=== PATIENT | female | born 2000 | race Caucasian/White ===

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

== ENCOUNTER → 2020-10-03 | Outpatient (CLI) | payer MEDICAID ==
--- NOTE | 2020-10-04 07:43 | ECHOF ---
Referral Reason:Z82.49 family hx heart disease MEASUREMENTS -------- HEIGHT: 170.2 cm WEIGHT: 61.2 kg BP: RVIDd: 2.8 cm (< 3.3) IVSd: 0.8 cm (0.6 - 1.1) LVIDd: 4.3 cm (3.9 - 5.3) LVPWd: 0.7 cm (0.6 - 1.1) IVSs: 1.2 cm LVIDs: 2.1 cm LVPWs: 1.2 cm LAESV Index (A-L): 13.54 ml/m Ao Diam: 2.7 cm (2.0 - 3.7) AV Cusp: 2.0 cm (1.5 - 2.6) MV EXCURSION: 17.081 mm (> 18.000) MV EF SLOPE: 114 mm/s (70 - 150) EPSS: 0.3 cm MV E Mo: 0.84 m/s MV DecT: 226 ms MV A Mo: 0.51 m/s MV E/A Ratio: 1.64 RAP: 5.00 mmHg RVSP: 24.22 mmHg FINDINGS -------- Sinus rhythm. This was a technically adequate study. The left ventricular size is normal. Left ventricular wall thickness is normal. There is normal g lobal left ventricular contractility. Overall left ventricular systolic function is normal with, an EF between 55 - 60 %. The diastolic filling pattern is normal for the age of the patient 5.70. The right ventricle is normal in size. Normal LA size by volume 22+/-6 ml/m2. The right atrial size is normal. Interatrial and interventricular septum intact. The aortic valve is trileaflet and appears structurally normal. There is no evidence of aortic regu rgitation. There is no evidence of aortic stenosis. There is trace mitral regurgitation. Trace tricuspid regurgitation present. There is no evidence of pulmonary hypertension. The right ventricular systolic pressure, as measured by Doppler, is 24.22mmHg. Trace/mild (physiologic) pulmonic regurgitation. The aortic root size is normal. IVC Not well visulized. There is no pericardial effusion. CONCLUSIONS -------- 1. This was a technically adequate study. 2. The left ventricular size is normal. 3. Left ventricular wall thickness is normal. 4. There is normal global left ventricular contractility. 5. Overall left ventricular systolic function is normal with, an EF between 55 - 60 %. 6. The diastolic filling pattern is normal for the age of the patient 5.70 7. There is trace mitral regurgitation. 8. Trace tricuspid regurgitation present. 9. Trace/mild (physiologic) pulmonic regurgitation. [employer]: Tayler Almeida RDCS
== END | disposition home or self-care (01) ==
LOC: RADECHMAIN 12:55
PROVIDERS: ATTEND Pediatrics
DX: Z09 Encounter for follow-up examination after completed treatment for conditions other than malignant neoplasm (principal); Z82.49 Family history of ischemic heart disease and other diseases of the circulatory system; I08.1 Rheumatic disorders of both mitral and tricuspid valves; I09.89 Other specified rheumatic heart diseases
CPT/HCPCS: 93306

== ENCOUNTER → 2023-05-19 | Outpatient (CLI) | payer MEDICAID ==
--- NOTE | 2023-05-19 13:26 | US ---
EXAMINATION TYPE: Transabdominal DATE OF EXAM: 05/19/2023 12:16 PM COMPARISON: NONE CLINICAL INDICATION: Female, 23 years old with history of Z36.89 ENCOUNTER FOR OTHER SPECIFIED ANTENA KELLE SCR; Confirm dates. . EXAM PERFORMED: Transabdominal (TA) EXAM MEASUREMENTS: GESTATIONAL AGE / DATING Physician Established: Not yet established. Dates by LMP: (8 weeks/0 days) EDC: 12/29/2023 Dates by First Scan: This is first scan Dates by Current Scan for: (8 weeks/4 days) EDC: 12/25/2023 MATERNAL ANATOMY Uterus: 11.3 x 7.6 x 6.5 cm. Right Ovary: 3.3 x 1.7 x 1.8 cm. Left Ovary: 4.3 x 2.6 x 1.9 cm. Post CDS / Adnexa: Appear wnl Presence of free fluid: None seen Presence of corpus luteal cyst: Not seen Presence of subchorionic bleed: Not seen GESTATION / SURVEY CRL: 1.95 (8 weeks/4 days) Yolk Sac (normal less than 6mm): 4 mm Heart Rate: 167 bpm Rhythm: Normal IUP: Viable IUP Date of LMP: 03/24/2023 Beta HcG (if available): Not available IMPRESSION: Single live intrauterine gestation with ultrasound age 8 weeks 4 days.
== END | disposition home or self-care (01) ==
LOC: RADUSWWP 12:14
PROVIDERS: ATTEND Obstetrics & Gynecology
DX: Z36.89 Encounter for other specified antenatal screening (principal); Z3A.08 8 weeks gestation of pregnancy
CPT/HCPCS: 76801

== ENCOUNTER → 2023-05-19 | Outpatient (CLI) | payer MEDICAID ==
[2023-05-19 15:39] LABS: HCT 40.1 % (37.2-46.3); HGB 13.4 d/dL (12.0-15.0); MCHC 33.4 d/dL (32.0-37.0); MCV 92.8 FL (80.0-97.0); Mean Platelet Volume 11.3 FL (9.5-12.2); NRBC Per 100 WBC 0 X 10*3/uL (0.00-0.01); Platelet Count 319 X 10*3/uL (140-440); RBC 4.32 X 10*6/uL (4.10-5.20); RDW 11.5 % (11.5-14.5); WBC 10.27 X 10*3/uL (4.50-10.00)
[2023-05-19 15:41] LABS: Glucose 117 mg/dL (70-110)
[2023-05-19 15:50] LABS: Hepatitis B Surface Antigen Nonreactive; Hepatitis C IgG Antibody Nonreactive
[2023-05-19 17:41] LABS: HIV 2 AB Non-Reactive (Non-Reactive); HIV AB P24 Non-Reactive (Non-Reactive); HIV P24 AG Non-Reactive (Non-Reactive)
[2023-05-20 04:58] LABS: Toxoplasma Antibody (IgG) <3.0 IU/mL (<7.2); Toxoplasma Antibody (IgM) <3.0 AU/mL (<8.0)
== END | disposition home or self-care (01) ==
LOC: LABWHC1 11:54
PROVIDERS: ATTEND Obstetrics & Gynecology
DX: Z34.01 Encounter for supervision of normal first pregnancy, first trimester (principal); Z3A.00 Weeks of gestation of pregnancy not specified
CPT/HCPCS: 36415; 82565; 82947; 85027; 86762; 86777; 86778; 86780; 86803; 87340; 87390

== ENCOUNTER → 2023-10-02 | Outpatient (CLI) | payer MEDICAID ==
--- NOTE | 2023-10-02 10:54 | US ---
EXAMINATION TYPE: US OB >= 14 wk fetus DATE OF EXAM: 10/02/2023 COMPARISON: US 2022 CLINICAL INDICATION: Female, 23 years old with history of O44.20 PARTIAL PLACENTA PREVIA NOS OR WITHO UT HEMO; Recheck placenta TECHNIQUE: Transabdominal (TA) GESTATIONAL AGE / DATING Physician Established: (28 weeks/0 days) EDC: 12/25/2023 Dates by LMP: (27 weeks/3 days) EDC: 12/29/2023 Dates by First Scan: (28 weeks/0 days) EDC: 12/25/2023 Dates by Current Scan: (28 weeks/5 days) EDC: 12/20/2023 SURVEY IUP: Single PLACENTA: Anterior PREVIA: Low Lying - tip of placenta 1.5cm from internal cervical os MONIK: 13.7 cm Normal CERVICAL LENGTH (transabdominal: norm > 3.0cm): 3.9 cm BIOMETRY PRESENTATION: Vertex BPD: 6.9 cm 28 weeks / 0 days HC: 25.9 cm 28 weeks / 1 days AC: 25.1 cm 29 weeks / 3 days FL: 5.5 cm 28 weeks / 6 days ESTIMATED WEIGHT IN GRAMS: 1310 grams ESTIMATED WEIGHT IN LBS/OZ: 2 lbs. 14 oz. WEIGHT PERCENTAGE BASED ON ESTABLISHED DATES: 74% HC/AC: 1.03 Abnormal FL/AC: 22% Normal HEART RATE: 150 bpm RHYTHM: Normal IMPRESSION: Single viable intrauterine .
== END | disposition home or self-care (01) ==
LOC: RADUSWWP 09:57
PROVIDERS: ATTEND Obstetrics & Gynecology
DX: O44.22 Partial placenta previa NOS or without hemorrhage, second trimester (principal); Z3A.29 29 weeks gestation of pregnancy
CPT/HCPCS: 76805

== ENCOUNTER 2023-12-24 23:55 | Inpatient (IN) | payer MEDICAID, OTHER ==
[2023-12-25] MEDS ORDERED: TRANEXAMIC 1,000 MG/100ML-NACL 1,000 MG in EMPTY BAG 1 BAG IV PRN (00:32)
[2023-12-25] MEDS ORDERED: TERBUTALINE 1 MG/ML VIAL SQ PRN (00:32)
[2023-12-25] MEDS ORDERED: CARBOPROST TROMETHAMINE 250 MCG/ML 1 ML AMP IM PRN (00:32)
[2023-12-25] MEDS ORDERED: OXYTOCIN 10 UNIT/ML 1 ML VIAL IM PRN (00:32)
[2023-12-25] MEDS ORDERED: miSOPROStoL 200 MCG TAB PO PRN (00:32)
[2023-12-25] MEDS ORDERED: METHYLERGONOVINE 0.2 MG/ML 1 ML AMP IM PRN (00:32)
[2023-12-25] MEDS: LACTATED RINGERS 1,000 ML IV SCH (01:03)
--- NOTE | 2023-12-25 01:12 | P.HPOB ---
History of Present Illness H&P Date: 12/25/23 Chief Complaint: Leaking of fluid, contractions This patient is a pleasant 23-year-old 1 para 0 female estimated date of confinement 12/25/2003 estimated gestational age 40-0/7 weeks who presents to labor and delivery with complaints of leaking of fluid earlier this evening and painful contractions. Patient's cervix in the office is 1 cm dilated is now 3 cm dilated. Patient's care is per Dr. Joiner appears to be complicated early on by a marginal previa however this resolved over serial ultrasounds. has otherwise been uncomplicated. Review of Systems Genitourinary: Reports Menstruation: Reports amenorrhea Past Medical History Past Medical History: No Reported History History of Any Multi-Drug Resistant Organisms: None Reported Past Surgical History: No Surgical Hx Reported Past Anesthesia/Blood Transfusion Reactions: No Reported Reaction Past Psychological History: No Psychological Hx Reported Smoking Status: Never smoker Past Alcohol Use History: None Reported Past Drug Use History: None Reported Medications and Allergies Home Medications Medication Instructions Recorded Confirmed Type Doxylamine Succinate [Unisom] 25 mg PO DAILY 12/25/23 12/25/23 History Pyridoxine [Vitamin B-6] 50 mg PO DAILY 12/25/23 12/25/23 History Allergies Allergy/AdvReac Type Severity Reaction Status Date / Time No Known Allergies Allergy Verified 12/25/23 00:02 Exam Vital Signs Temp Pulse Resp BP Pulse Ox 12/25/23 00:19 97.2 F L 82 16 134/73 97 Intake and Output 12/24/23 12/24/23 12/25/23 14:59 22:59 06:59 Other: Weight 83.007 kg - OBG Physical Exam Abdomen: bowel sounds normal, no diffuse tenderness, no bruit present, no guarding noted, no hepatomegaly, no splenomegaly, no mass Vulva: both: normal Vagina: normal moisture, no discharge Cervix: no lesion (Patient's cervix is 3/70/-2 station), no discharge Uterus: enlarged Results blood work shows she is Rubella immune, RPR nonreactive, hepatitis B and C negative, Glucola was normal, group B strep was negative. Patient's blood type is unavailable to me at this time. Ultrasounds initially showed a marginal previa however follow-up subsequent shoulder low-lying placenta and most recently showed normal placental placement Assessment and Plan Assessment: This is a pleasant 23-year-old 1 para 0 female 40-0/7 weeks gestation with spontaneous rupture membranes in early labor. Plan at this time is anticipate vaginal delivery and pain control per patient's request. (1) 40 weeks gestation of Current Visit: Yes Status: Acute Code(s): Z3A.40 - 40 WEEKS GESTATION OF SNOMED Code(s): 50853740 (2) Spontaneous rupture of amniotic membranes Current Visit: Yes Status: Acute Code(s): ODG3294 - SNOMED Code(s): 527434224 (3) Normal labor Current Visit: Yes Status: Acute Code(s): O80 - ENCOUNTER FOR FULL-TERM UNCOMPLICATED DELIVERY; Z37.9 - OUTCOME OF DELIVERY, UNSPECIFIED SNOMED Code(s): 57368570
[2023-12-25 01:16] LABS: Basophils % (A) 0 %; Eosinophils # (A) 0.1 k/uL (0-0.7); Eosinophils % (A) 1 %; HCT 36.8 % (34.0-46.0); HGB 12.7 gm/dL (11.4-16.0); Lymphocytes # (A) 1.9 k/uL (1.0-4.8); Lymphocytes % (A) 23 %; MCH 32.6 pg (25.0-35.0); MCHC 34.5 g/dL (31.0-37.0); MCV 94.6 fL (80.0-100.0); Mean Platelet Volume 8.3; Monocytes # (A) 0.5 k/uL (0-1.0); Monocytes % (A) 6 %; Neutrophils # (A) 5.6 k/uL (1.3-7.7); Neutrophils % (A) 67 %; Platelet Count 232 k/uL (150-450); RDW 13.7 % (11.5-15.5); WBC 8.3 k/uL (3.8-10.6)
[2023-12-25] MEDS ORDERED: ROPIVACAINE 5 MG/ML 30 ML VIAL ONE (04:26)
[2023-12-25] MEDS ORDERED: SODIUM CHLORIDE 0.9% 250 ML BAG ONE (04:26)
[2023-12-25] MEDS ORDERED: fentaNYL (PF) 50 MCG/ML 5 ML AMP ONE (04:26)
[2023-12-25] MEDS: OXYTOCIN 30 UNITS/500 ML NS 30 UNIT in SALINE 1 500ML.BAG IV SCH ×2 (06:16→11:34)
[2023-12-25] MEDS: LIDOCAINE 0.5% (PF) 5 MG/ML (50 ML SDV) SQ PRN (11:35)
[2023-12-25] MEDS ORDERED: LANOLIN CREAM 1 GM TUBE TOPICAL PRN (11:44)
[2023-12-25] MEDS ORDERED: HYDROCORTISONE 2.5% RECTAL CREAM 30 GM TUBE RECTAL PRN (11:44)
[2023-12-25] MEDS ORDERED: diphenhydrAMINE 50 MG CAP PO PRN (11:44)
[2023-12-25] MEDS ORDERED: SIMETHICONE 80 MG CHEWABLE PO PRN (11:44)
[2023-12-25] MEDS ORDERED: ZOLPIDEM 5 MG TAB PO PRN (11:44)
[2023-12-25] MEDS ORDERED: diphenhydrAMINE 50 MG/ML 1 ML VIAL IVP PRN ×2 (11:44)
[2023-12-25] MEDS ORDERED: diphenhydrAMINE 25 MG CAP PO PRN (11:44)
[2023-12-25] MEDS: BENZOCAINE/MENTHOL SPRAY 1 GM/SPRAY AEROSOL TOPICAL PRN (11:45)
[2023-12-25] MEDS: ROPIVACAINE 225 MG, fentaNYL (PF). 450 MCG in SODIUM CHLORIDE 0.9% 171 ML EPIDURAL ONE (15:08)
[2023-12-25] MEDS: IBUPROFEN 600 MG TAB PO PRN (20:43)
[2023-12-25] MEDS: SENNOSIDES-DOCUSATE SODIUM 1 EACH TAB PO SCH (22:14)
[2023-12-26] MEDS: ACETAMINOPHEN TAB 325 MG TAB PO PRN (00:24)
[2023-12-26] MEDS: Rhogam IMMUNE GLOBULIN 1,500 UNIT/1 ML IM ONE (00:28)
[2023-12-26 06:46] LABS: Basophils % (A) 0 %; Eosinophils # (A) 0.1 k/uL (0-0.7); Eosinophils % (A) 1 %; HCT 28.7 % (34.0-46.0); Lymphocytes # (A) 1.8 k/uL (1.0-4.8); Lymphocytes % (A) 14 %; MCH 32.3 pg (25.0-35.0); MCHC 33.6 g/dL (31.0-37.0); Mean Platelet Volume 8.7; Monocytes # (A) 0.6 k/uL (0-1.0); Monocytes % (A) 4 %; Neutrophils # (A) 10.8 k/uL (1.3-7.7); Neutrophils % (A) 79 %; Platelet Count 189 k/uL (150-450); RBC 2.99 m/uL (3.80-5.40); RDW 13.9 % (11.5-15.5); WBC 13.6 k/uL (3.8-10.6)
[2023-12-26 07:14] LABS: HGB 9.6 gm/dL (11.4-16.0)
--- NOTE | 2023-12-26 08:33 | P.PROBDLV ---
Vaginal Delivery Note - . Vaginal Delivery Note: 23 year old presents at 40 weeks gestation with spontaneous rupture of membranes and in labor. She is andrea every few minutes. heart tones category 1. The patient was 4 cm dilated, 80% effaced, -2 station she stalled out at this and Pitocin augmentation was started. Patient was comfortable with an epidural. Her cervix was completely dilated at 9:55 AM. She pushed, delivered a viable female over intact perineum under epidural anesthesia 11:31 AM. Head delivered OA, anterior shoulder delivered gentle downward guidance followed by posterior shoulder and rest of body. Nose and mouth bulb suctioned, cord clamped and cut, placed on mother's abdomen. Apgars 9, 10, weight 9 pounds. Placenta delivered spontaneously, intact with three-vessel cord at 11:34 AM. Vagina, cervix, and perineum were inspected. Second-degree midline laceration was repaired with 3-0 Vicryl. Estimated blood loss 250 mL. Mother and baby in stable condition.
--- NOTE | 2023-12-26 08:34 | P.DS ---
Providers Date of admission: 12/25/23 00:13 Expected date of discharge: 12/26/23 Attending physician: Jennifer Joiner Primary care physician: Stated None - Discharge Diagnosis(es) (1) Status post normal vaginal delivery Current Visit: Yes Status: Acute Hospital Course: Patient presented with spontaneous rupture of membranes and in active labor. She underwent a normal vaginal delivery. course was uneventful. She denies nausea, vomiting, chest pain, shortness of breath and Pain. Patient will be discharged home day #1 in stable condition to follow-up with me in 6 weeks. Plan - Discharge Summary New Discharge Prescriptions: New Ibuprofen [Motrin] 600 mg PO Q6HR PRN #30 tab PRN Reason: Mild Pain (Scale 1 To 3) No Action Pyridoxine [Vitamin B-6] 50 mg PO DAILY Doxylamine Succinate [Unisom] 25 mg PO DAILY Discharge Medication List Doxylamine Succinate [Unisom] 25 mg PO DAILY 12/25/23 [History] Pyridoxine [Vitamin B-6] 50 mg PO DAILY 12/25/23 [History] Ibuprofen [Motrin] 600 mg PO Q6HR PRN #30 tab 12/26/23 [Rx] Follow up Appointment(s)/Referral(s): Jennifer Joiner DO [Doctor of Osteopathic Medicine] - 6 Weeks Discharge Disposition: HOME SELF-CARE
--- NOTE | 2023-12-27 06:59 | P.PNOBGVD ---
Subjective - Subjective Patient reports: Reports appetite normal, Reports voiding normally, Reports pain well controlled, Reports ambulating normally : doing well, in NICU Objective - Latest Vital Signs Latest vital signs: Vital Signs Temp Pulse Resp BP Pulse Ox 12/26/23 23:15 97.9 F 73 16 129/81 12/26/23 16:00 97.7 F 81 16 110/68 99 12/26/23 08:00 98.6 F 77 16 92/61 98 Intake and Output 12/26/23 12/26/23 12/27/23 14:59 22:59 06:59 Intake Total 480 480 Balance 480 480 Intake: Oral 480 480 Other: Voiding Method Toilet # Voids 2 2 1 - Exam Lungs: bilateral: normal Chest: Normal S1, Normal S2 Extremities: Present: normal Abdomen: Present: normal appearance, soft Uterus: Present: normal, firm - Labs Labs: Abnormal Lab Results - Last 24 Hours (Table) 12/26/23 Range/Units 06:25 WBC 13.6 H (3.8-10.6) k/uL RBC 2.99 L (3.80-5.40) m/uL Hgb 9.6 L D (11.4-16.0) gm/dL Hct 28.7 L (34.0-46.0) % Neutrophils # 10.8 H (1.3-7.7) k/uL Assessment and Plan Assessment: Post day #2. Patient is resting without new complaints. Patient was going to go home yesterday however her baby needed to stay secondary to IV antibiotics. Plan today is to continue routine care. Discharge home later today. (1) 40 weeks gestation of Current Visit: Yes Status: Acute Code(s): Z3A.40 - 40 WEEKS GESTATION OF SNOMED Code(s): 44853894 (2) Spontaneous rupture of amniotic membranes Current Visit: Yes Status: Acute Code(s): RHL7851 - SNOMED Code(s): 220765703 (3) Normal labor Current Visit: Yes Status: Acute Code(s): O80 - ENCOUNTER FOR FULL-TERM UNCOMPLICATED DELIVERY; Z37.9 - OUTCOME OF DELIVERY, UNSPECIFIED SNOMED Code(s): 10216559
[2023-12-27 10:14] VITALS: BP 100/67; PULSE 82; RESP 17; TEMP 97.6
== END 2023-12-27 11:44 | disposition home or self-care (01) | DRG 807 ==
LOC: FBPOP 23:55 → 4FBP 12-25 00:13
PROVIDERS: ADMIT Obstetrics & Gynecology; ATTEND Obstetrics & Gynecology
PROC: 0KQM0ZZ Repair Perineum Muscle, Open Approach (ICD-10-PCS; principal; 2023-12-25)
PROC: 10E0XZZ Delivery of Products of Conception, External Approach (ICD-10-PCS; principal; 2023-12-25)
PROC: 3E0234Z Introduction of Serum, Toxoid and Vaccine into Muscle, Percutaneous Approach (ICD-10-PCS; 2023-12-26)
DX: O70.1 Second degree perineal laceration during delivery (principal); Z37.0 Single live birth; O26.893 Other specified pregnancy related conditions, third trimester; Z67.11 Type A blood, Rh negative; Z3A.40 40 weeks gestation of pregnancy; Z28.310 Unvaccinated for COVID-19; Z79.899 Other long term (current) drug therapy
CPT/HCPCS: 84112; 85025; 85461; 86850; 86900; 86901; 99213